=== PATIENT | female | born 1990 | race Caucasian/White ===

== ENCOUNTER 2017-08-12 09:41 | Emergency (ER) | payer OTHER ==
[~2017-08-12] VITALS: Ht 167.6 cm; Wt 90.7 kg
[~2017-08-12 09:41] MED LIST: ADVIL200 MG; ALBUTEROL0.09 MG/A2 IH; ALBUTEROL0.09 MG/A2 INH; ANAPROX DS550 MG PO; BACTRIM DS 8001 TA1 PO; BENTYL10 MG PO; BUSPIRONE HCL10 MG PO; CLARITIN10 MG PO; CLEOCIN150 MG PO; CLINDAMYCIN HC300 MG PO; CLINDAMYCIN150 MG PO; COMBIVENT1 ARO IH; DEXTROAMPH SACC30 MG PO; DOXYCYCLINE100 M2 PO; DULARA; DULER200; DULER200 INH; FLEXERIL5 MG PO; HEPARIN SC; HYDROCODONE BIT1 T11 PO; Lovenox40 MG/0.4 SC; MEDROL DOSEPAK4 MG PO; MOTRIN800 MG PO; Motrin,Rufen800 MG PO; NAPROSYN500 MG PO; PERCOCET 325 MG1 TA2 PO; PREDNICOT20 MG PO; PREDNISONE10 MG PO; PREDNISONE20 M1 PO; PRENATAL1 TA1 PO; PROAIR HFA0.09 MG/AC IH; PROAIR HFA8.5 GM INH; PROVENTIL0.09 MG/A1 IH; PROVENTIL0.09 MG/A1 INH; PROVENTIL0.09 MG/AC IH; ROBITUSSIN DM120 ML PO; SERTRALINE HYD100 MG PO; Synthroid,Levo50 MCG PO; VENTOLIN0.09 MG/AC INH; VIBRAMYCIN100 MG PO; VICODIN 5/500 505 MG PO; ZITHROMAX Z PA250 MG PO; ZITHROMAX Z-PA250 MG PO; ZOFRAN ODT4 MG PO; ZOFRAN ODT4 MG SL; ZYRTEC10 MG PO; Zofran4 MG PO
[2017-08-12 10:17] LABS: BILIRUBIN NEGATIVE (NEGATIVE); BLOOD 1+ (NEGATIVE); CLARITY CLOUDY (CLEAR); COLOR YELLOW (YELLOW); GLUCOSE NEGATIVE (NEGATIVE); KETONE NEGATIVE (NEGATIVE); LEUKO ESTERASE NEGATIVE (NEGATIVE); NITRITE NEGATIVE (NEGATIVE); PH 8.5 (5.0-9.0); UROBILINOGEN 0.2 E.U./dl (0.2-1.0)
[2017-08-12 10:34] LABS: BACTERIA 2+
== END 2017-08-12 12:52 | disposition left against medical advice (07) ==
LOC: ED 09:41
PROVIDERS: Emergency Medicine
DX: O46.92 Antepartum hemorrhage, unspecified, second trimester (principal); O99.512 Diseases of the respiratory system complicating pregnancy, second trimester; J45.909 Unspecified asthma, uncomplicated; R10.9 Unspecified abdominal pain; Z3A.18 18 weeks gestation of pregnancy; Z88.1 Allergy status to other antibiotic agents; Z79.899 Other long term (current) drug therapy; Z87.891 Personal history of nicotine dependence

== ENCOUNTER 2019-09-01 08:18 | Emergency (ER) | payer OTHER ==
[~2019-09-01] VITALS: Ht 167.6 cm; Wt 93.0 kg
[2019-09-01] MEDS ORDERED: TAMIFLU 75MG CA75 MG PO (09:35)
== END 2019-09-01 10:46 | disposition home or self-care (01) ==
LOC: ED 08:18
DX: J10.1 Influenza due to other identified influenza virus with other respiratory manifestations (principal); J44.9 Chronic obstructive pulmonary disease, unspecified; Z88.1 Allergy status to other antibiotic agents; Z79.899 Other long term (current) drug therapy; E66.9 Obesity, unspecified; Z68.30 Body mass index [BMI] 30.0-30.9, adult; Z86.718 Personal history of other venous thrombosis and embolism; Z87.891 Personal history of nicotine dependence

== ENCOUNTER 2020-12-13 15:06 | Emergency (ER) | payer OTHER ==
[~2020-12-13] VITALS: Ht 167.6 cm; Wt 95.3 kg
[~2020-12-13 15:06] MED LIST changes: +TAMIFLU 75MG CA75 MG PO
[2020-12-13] MEDS ORDERED: CLINDAMYCIN HC300 MG PO (15:22)
== END 2020-12-13 15:37 | disposition home or self-care (01) ==
LOC: ED 15:06
DX: K08.89 Other specified disorders of teeth and supporting structures (principal); Z88.1 Allergy status to other antibiotic agents; Z79.899 Other long term (current) drug therapy; Z87.891 Personal history of nicotine dependence

== ENCOUNTER 2021-04-08 19:12 | Emergency (ER) | payer OTHER | END 2021-04-08 22:08 | disposition left against medical advice (07) | LOC: ED 19:12 | DX: R51.9 Headache, unspecified (principal); Z53.21 Procedure and treatment not carried out due to patient leaving prior to being seen by health care provider ==

== ENCOUNTER 2021-11-22 12:31 | Emergency (ER) | payer SELFPAY ==
[~2021-11-22] VITALS: Wt 90.7 kg
[2021-11-22] MEDS ORDERED: PREDNISONE50 MG PO (13:56)
[2021-11-22] MEDS ORDERED: AEROECLIPSE II1 EACH MC (13:56)
[2021-11-22] MEDS ORDERED: PROVENTIL HFA6.7 GM INH (13:56)
[2021-11-22] MEDS ORDERED: Ipratropium Brom3 ML INH (13:56)
== END 2021-11-22 14:51 | disposition home or self-care (01) ==
LOC: ED 12:31
DX: J44.1 Chronic obstructive pulmonary disease with (acute) exacerbation (principal); Z88.1 Allergy status to other antibiotic agents; Z79.899 Other long term (current) drug therapy; Z87.891 Personal history of nicotine dependence

== ENCOUNTER → 2021-12-23 | Outpatient (CLI) | payer SELFPAY ==
[~2021-12-23] MED LIST changes: +AEROECLIPSE II1 EACH MC; +Ipratropium Brom3 ML INH; +PREDNISONE50 MG PO; +PROVENTIL HFA6.7 GM INH
== END | disposition home or self-care (01) ==
LOC: RESCLI 00:21
PROVIDERS: ATTEND Emergency Medicine
DX: J44.9 Chronic obstructive pulmonary disease, unspecified (principal); E03.9 Hypothyroidism, unspecified; G89.29 Other chronic pain; M54.50 Low back pain, unspecified; Z79.899 Other long term (current) drug therapy; Z88.8 Allergy status to other drugs, medicaments and biological substances

== ENCOUNTER → 2022-03-03 | Outpatient (CLI) | payer SELFPAY | END | disposition home or self-care (01) | LOC: RESCLI 10:18 | PROVIDERS: ATTEND Family Medicine | DX: E03.9 Hypothyroidism, unspecified (principal); J44.9 Chronic obstructive pulmonary disease, unspecified; E55.9 Vitamin D deficiency, unspecified; R53.83 Other fatigue; Z12.4 Encounter for screening for malignant neoplasm of cervix; Z79.899 Other long term (current) drug therapy; Z88.8 Allergy status to other drugs, medicaments and biological substances ==

== ENCOUNTER 2024-07-02 17:15 | Emergency (ER) | payer OTHER | END 2024-07-02 18:33 | disposition left against medical advice (07) | LOC: ED 17:15 | DX: R59.9 Enlarged lymph nodes, unspecified (principal); Z88.1 Allergy status to other antibiotic agents; Z53.21 Procedure and treatment not carried out due to patient leaving prior to being seen by health care provider ==

== ENCOUNTER 2024-10-07 13:07 | Emergency (ER) | payer OTHER ==
[~2024-10-07] VITALS: Ht 167.6 cm; Wt 91.6 kg
[2024-10-07] MEDS ORDERED: SODIUM CHLORIDE 0.9% 1,000 ML IV ONE (13:45)
[2024-10-07] MEDS ORDERED: Ondansetron Hydrochloride 4 MG/2 ML VIAL IV ONE (13:45)
[2024-10-07 13:58] LABS: BASO # 0.1 10*3/uL (0.0-0.1); BASO % 1.6 % (0.0-1.0); EOS # 0.6 10*3/uL (0.0-0.4); EOS % 6.8 % (1.0-4.0); HEMATOCRIT 38.1 % (37.0-47.0); MEAN CELL VOLUME 92.3 fl (81.0-99.0); MEAN CORPUSCULAR HGB 30.8 pg (27.0-31.0); MEAN CORPUSCULAR HGB CONC 33.3 g/dl (33.0-37.0); MEAN PLATELET VOLUME 10.9 fl (9.6-12.3); MONO # 0.8 10*3/uL (0.1-1.0); MONO % 9.5 % (3.0-9.0); NEUT # 4.4 10*3/uL (2.3-7.9); NEUT % 53.6 % (47.0-73.0); PLATELET COUNT AUTOMATED 236 10*3/uL (130-400); RED BLOOD COUNT 4.13 10*6/uL (4.10-5.10); RED CELL DISTRI WIDTH 12.3 % (0-14.5); WHITE BLOOD COUNT 8.2 10*3/uL (4.8-10.8)
[2024-10-07 14:21] LABS: ALKALINE PHOSPHATASE 63 U/L (46-116); BUN 11 mg/dl (9-23); CHLORIDE 111 mmol/L (98-107); LIPASE 29 U/L (12-53); POTASSIUM 3.8 mmol/L (3.4-5.1); SGPT/ALT 37 U/L (5-49); TOTAL PROTEIN 6.9 gm/dL (6.0-8.0)
[2024-10-07] MEDS ORDERED: CIPRO500 MG PO (15:26)
[2024-10-07] MEDS ORDERED: Phenergan25 MG PO (15:26)
[2024-10-07] MEDS ORDERED: Ciprofloxacin Hydrochloride 500 MG TAB PO ONE (15:30)
== END 2024-10-07 15:55 | disposition home or self-care (01) ==
LOC: ED 13:07
PROVIDERS: Nurse Practitioner Family
DX: K52.9 Noninfective gastroenteritis and colitis, unspecified (principal); J44.9 Chronic obstructive pulmonary disease, unspecified; E03.9 Hypothyroidism, unspecified; F12.90 Cannabis use, unspecified, uncomplicated; Z87.891 Personal history of nicotine dependence; Z88.1 Allergy status to other antibiotic agents; Z90.49 Acquired absence of other specified parts of digestive tract; Z98.890 Other specified postprocedural states

== ENCOUNTER 2025-03-12 20:04 | Emergency (ER) | payer SELFPAY ==
[~2025-03-12] VITALS: Ht 167.6 cm; Wt 86.2 kg
[~2025-03-12 20:04] MED LIST changes: +CIPRO500 MG PO; +Phenergan25 MG PO
[2025-03-12] MEDS ORDERED: SYNTHROID,LEV112 MCG PO (20:21)
[2025-03-12 20:52] LABS: BASO # 0.1 10*3/uL (0.0-0.1); BASO % 1.5 % (0.0-1.0); EOS # 0.5 10*3/uL (0.0-0.4); EOS % 5.7 % (1.0-4.0); MEAN CELL VOLUME 92.8 fl (81.0-99.0); MEAN CORPUSCULAR HGB 30.6 pg (27.0-31.0); MEAN PLATELET VOLUME 10.8 fl (9.6-12.3); MONO # 0.8 10*3/uL (0.1-1.0); MONO % 8.1 % (3.0-9.0); NEUT # 5.4 10*3/uL (2.3-7.9); NEUT % 57.1 % (47.0-73.0); NUCLEATED RED BLOOD CELL 0.0 % (0.0-0.0); NUCLEATED RED BLOOD CELL 0.0 10*3/uL (0.0-0.0); PLATELET COUNT AUTOMATED 343 10*3/uL (130-400); RED CELL DISTRI WIDTH 12.7 % (0-14.5)
[2025-03-12 21:11] LABS: BUN 12 mg/dl (9-23)
== END 2025-03-12 22:15 | disposition home or self-care (01) ==
LOC: ED 20:04
PROVIDERS: Internal Medicine
DX: N93.9 Abnormal uterine and vaginal bleeding, unspecified (principal); Z90.711 Acquired absence of uterus with remaining cervical stump; Z88.1 Allergy status to other antibiotic agents; Z79.899 Other long term (current) drug therapy; Z87.891 Personal history of nicotine dependence

== ENCOUNTER 2025-06-22 12:22 | Emergency (ER) | payer OTHER ==
[~2025-06-22] VITALS: Ht 167.6 cm; Wt 86.2 kg
[~2025-06-22 12:22] MED LIST changes: +SYNTHROID,LEV112 MCG PO
[2025-06-22] MEDS ORDERED: ALBUTEROL SULFATE HF (13:03)
[2025-06-22] MEDS ORDERED: NAPROSYN500 MG PO (14:37)
== END 2025-06-22 14:44 | disposition home or self-care (01) ==
LOC: ED 12:22
DX: S46.912A Strain of unspecified muscle, fascia and tendon at shoulder and upper arm level, left arm, initial encounter (principal); J44.89 Other specified chronic obstructive pulmonary disease; Z88.0 Allergy status to penicillin; Z79.899 Other long term (current) drug therapy; Z90.710 Acquired absence of both cervix and uterus; Z87.891 Personal history of nicotine dependence; X50.0XXA Overexertion from strenuous movement or load, initial encounter; Y93.89 Activity, other specified; Y92.89 Other specified places as the place of occurrence of the external cause; Y99.8 Other external cause status